=== PATIENT | female | born 1980 | race Caucasian/White ===

== ENCOUNTER 2017-05-24 05:03 | Inpatient (IN) | payer OTHER ==
[~2017-05-24] VITALS: Ht 157.5 cm; Wt 94.8 kg
[2017-05-24] MEDS ORDERED: LR 1,000 ML IV ONE (05:12)
[2017-05-24] MEDS ORDERED: CEFAZOLIN 2 GM IVPB PREMIX 50 ML IV ONE (05:15)
[2017-05-24 05:52] VITALS: BP_SYST 136
[2017-05-24] MEDS ORDERED: LR 1,000 ML IV SCH ×2 (08:16→09:21)
[2017-05-24] MEDS ORDERED: MEPERIDINE HCL/PF 25 MG/ML DISP.SYRIN IVP PRN (08:30)
[2017-05-24] MEDS ORDERED: KETOROLAC TROMETHAMINE 60 MG/2 ML VIAL IM PRN (08:30)
[2017-05-24] MEDS ORDERED: MEPERIDINE HCL/PF 50 MG/ML AMP IVP PRN ×2 (08:30)
[2017-05-24] MEDS ORDERED: DIPHENHYDRAMINE INJ 50 MG/ML VIAL IM PRN (08:30)
[2017-05-24] MEDS ORDERED: ONDANSETRON HCL 4 MG/2 ML VIAL IVP PRN (08:30)
[2017-05-24] MEDS ORDERED: METOCLOPRAMIDE HCL 10 MG/2 ML VIAL IVP PRN (08:30)
[2017-05-24] MEDS ORDERED: MORPHINE SULFATE 10MG/10ML PF AMP SP SCH (08:30)
[2017-05-24 09:05] VITALS: BP_SYST 121
[2017-05-24] MEDS ORDERED: ONDANSETRON HCL 4 MG/2 ML VIAL IVP ONE (09:05)
[2017-05-24] MEDS ORDERED: NS IRRIG SOLN 1000 ML IR ONE (09:05)
[2017-05-24] MEDS ORDERED: LR 1,000 ML IV.SOLN IV ONE (09:05)
[2017-05-24] MEDS ORDERED: BUPIVACAINE /PF 0.75% 10 ML VIAL INJ ONE (09:05)
[2017-05-24] MEDS ORDERED: MORPHINE SULFATE 10MG/10ML PF AMP EP ONE (09:05)
[2017-05-24] MEDS ORDERED: MIDAZOLAM HCL 5 MG/ML VIAL (VERSED) IV ONE (09:05)
[2017-05-24] MEDS ORDERED: OXYTOCIN/0.9 % SODIUM CHLORIDE 1,000 ML IV ONE (09:21)
[2017-05-24] MEDS ORDERED: OXYCODONE/ACETAMINOPHEN 5-325 TABLET PO PRN (09:30)
[2017-05-24] MEDS ORDERED: RHO(D) IMMUNE GLOBULIN/MALTOSE 1500 UNITS/1.3 ML (WINHRO) IM PRN (09:30)
[2017-05-24] MEDS ORDERED: LANOLIN 7 GM OINT. TP PRN (09:30)
[2017-05-24] MEDS ORDERED: MEASLES,MUMPS&RUBELLA VACC/PF 12500 UNIT/0.5 ML VIAL SUBQ PRN (09:30)
[2017-05-24] MEDS ORDERED: ANUSOL 1 EA SUPP.RECT (PREPARATION H) RC PRN (09:30)
[2017-05-24] MEDS ORDERED: BISACODYL 10 MG/SUPPOSITORY RC PRN (09:30)
[2017-05-24] MEDS ORDERED: DIPHENHYDRAMINE INJ 50 MG/ML VIAL ONE (09:46)
[2017-05-24] MEDS ORDERED: TEMAZEPAM 15 MG CAPSULE PO PRN (21:00)
[2017-05-25 07:34] LABS: HEMATOCRIT 35.4 % (36-48); HEMOGLOBIN 11.9 g/dL (12.0-16.0)
[2017-05-25] MEDS: DOCUSATE SODIUM 100 MG CAPSULE PO PRN (12:21)
[2017-05-25] MEDS: SENNOSIDES/DOCUSATE SODIUM 1 TAB TABLET(SENOKOT-S) PO PRN (12:21)
[2017-05-25] MEDS: SIMETHICONE 80 MG TAB.CHEW PO PRN (12:22)
[2017-05-25] MEDS: IBUPROFEN 800 MG TABLET PO PRN ×3 (12:23→23:20)
[2017-05-25] MEDS: OXYCODONE/ACETAMINOPHEN 5-325 TABLET PO PRN (22:12)
[2017-05-26] MEDS: IBUPROFEN 800 MG TABLET PO PRN ×4 (06:01→23:51)
[2017-05-26] MEDS: SENNOSIDES/DOCUSATE SODIUM 1 TAB TABLET(SENOKOT-S) PO PRN (12:10)
[2017-05-26] MEDS: SIMETHICONE 80 MG TAB.CHEW PO PRN (12:10)
[2017-05-26] MEDS: DOCUSATE SODIUM 100 MG CAPSULE PO PRN (12:10)
[2017-05-26] MEDS: OXYCODONE/ACETAMINOPHEN 5-325 TABLET PO PRN (23:50)
[2017-05-27] MEDS: OXYCODONE/ACETAMINOPHEN 5-325 TABLET PO PRN (06:06)
[2017-05-27] MEDS: IBUPROFEN 800 MG TABLET PO PRN (06:06)
== END 2017-05-27 09:45 | disposition home or self-care (01) | DRG 766 ==
LOC: SPU 05:03
PROVIDERS: ADMIT Obstetrics & Gynecology; ATTEND Obstetrics & Gynecology
PROC: 10D00Z1 Extraction of Products of Conception, Low, Open Approach (ICD-10-PCS; principal; 2017-05-24 07:30)
DX: O34.211 Maternal care for low transverse scar from previous cesarean delivery (principal); E66.01 Morbid (severe) obesity due to excess calories; O99.214 Obesity complicating childbirth; O69.81X0 Labor and delivery complicated by cord around neck, without compression, not applicable or unspecified; O09.523 Supervision of elderly multigravida, third trimester; Z37.0 Single live birth; Z3A.39 39 weeks gestation of pregnancy; Z68.38 Body mass index [BMI] 38.0-38.9, adult
CPT/HCPCS: 36415; 85018-TC; 86886; 86900; 86901; 94760; J0690; J1200; J1885; J2250; J2274; J2405; J2590; J3490; J7120